=== PATIENT | female | born 1960 | race Caucasian/White ===

== ENCOUNTER → 2016-07-11 | Day surgery (SDC) | payer OTHER | END | disposition home or self-care (01) | LOC: FAS 06:40 | DX: M23.222 Derangement of posterior horn of medial meniscus due to old tear or injury, left knee (principal); M25.862 Other specified joint disorders, left knee; M17.12 Unilateral primary osteoarthritis, left knee; M23.42 Loose body in knee, left knee; I10 Essential (primary) hypertension; F17.210 Nicotine dependence, cigarettes, uncomplicated; Z79.899 Other long term (current) drug therapy | CPT/HCPCS: J2704; J3010 ==